=== PATIENT | female | born 1995 | race Caucasian/White ===

== ENCOUNTER 2020-08-06 10:32 | Emergency (ER) | payer OTHER, BC ==
[~2020-08-06] VITALS: Ht 162.6 cm; Wt 133.8 kg
[2020-08-06] MEDS ORDERED: SUPER THERAVIT1 EACH PO (10:44)
[2020-08-06] MEDS ORDERED: KEFLEX500 M1 PO (12:11)
[2020-08-06 12:27] VITALS: BP 120/69
== END 2020-08-06 12:29 | disposition home or self-care (01) ==
LOC: M.ERS 10:32
DX: S61.012A Laceration without foreign body of left thumb without damage to nail, initial encounter (principal); G40.909 Epilepsy, unspecified, not intractable, without status epilepticus; Z79.899 Other long term (current) drug therapy; W26.8XXA Contact with other sharp object(s), not elsewhere classified, initial encounter; Y93.89 Activity, other specified; Y92.89 Other specified places as the place of occurrence of the external cause; Y99.9 Unspecified external cause status

== ENCOUNTER 2021-02-25 10:24 | Emergency (ER) | payer BC ==
[~2021-02-25] VITALS: Ht 162.6 cm; Wt 133.8 kg
[~2021-02-25 10:24] MED LIST: KEFLEX500 M1 PO; SUPER THERAVIT1 EACH PO
[2021-02-25 13:20] VITALS: BP 151/94
== END 2021-02-25 13:21 | disposition left against medical advice (07) ==
LOC: M.ERS 10:24
DX: Z53.21 Procedure and treatment not carried out due to patient leaving prior to being seen by health care provider (principal)